=== PATIENT | male | born 1990 | race Caucasian/White ===

== ENCOUNTER 2019-05-20 21:40 | Emergency (ER) | payer OTHER ==
[~2019-05-20] VITALS: Ht 172.7 cm; Wt 99.8 kg
[2019-05-20 22:04] LABS: ABSOLUTE BASOPHILS 0.1 thou/uL (0.0-0.2); ABSOLUTE EOSINOPHILS 0.3 thou/uL (0.0-0.7); ABSOLUTE MONOCYTES 0.7 thou/uL (0.0-1.2); ABSOLUTE NEUTROPHILS 4.6 thou/uL (1.6-8.1); BASOPHILS 1.2 %; EOSINOPHILS 3.1 %; HEMATOCRIT 42.7 % (42.0-52.0); HEMOGLOBIN 15.1 gm/dL (14.0-18.0); LYMPHOCYTES 34.4 %; MCHC 35.3 g/dL (28.0-37.0); MCV 85.1 fL (80.0-100.0); MONOCYTES 7.8 %; MPV 8.9 fl. (7.2-11.1); NUCLEATED RBCS 0 /100WBC; PLATELET COUNT* 210 thou/uL (150-400); POLYS 53.5 %; RBC 5.02 mil/uL (4.50-6.00); RDW-CV 13.1 % (10.5-14.5); WBC 8.6 thou/uL (4.0-11.0)
[2019-05-20 22:14] LABS: ANION GAP 10 mmol/L (7-16); APTT 25.7 Seconds (25.0-31.3); BUN 18 mg/dL (7-18); CHLORIDE 105 mmol/L (98-107); CO2 29 mmol/L (21-32); CREATININE 1.1 mg/dL (0.6-1.3); GLUCOSE 94 mg/dL (70-99); POTASSIUM 3.6 mmol/L (3.5-5.1); PROTIME 10.6 Seconds (9.20-11.50); SODIUM 144 mmol/L (136-145)
[2019-05-20 22:27] LABS: ALBUMIN 4.1 g/dL (3.4-5.0); ALKALINE PHOSPHATASE 70 U/L (46-116); CK-MB MASS 0.6 ng/mL (<0.5-3.6); LIPASE 183 U/L (73-393); MAGNESIUM 1.8 mg/dL (1.8-2.4); NT-PRO BRAIN NAT PEPTIDE 22 pg/mL (<300); SGOT 27 U/L (15-37); SGPT 66 U/L (30-65); TOTAL BILIRUBIN 0.6 mg/dL (<0.1-1.0); TOTAL PROTEIN 7.6 g/dL (6.4-8.2); TROPONIN-I LEVEL <0.06 ng/mL (<0.06)
[2019-05-20 23:22] VITALS: BP 122/63
--- NOTE | 2019-05-22 10:49 | EKG ---
[place] [address] ELECTROCARDIOGRAM REPORT Name: FAYE HODGES [id number] Admission: 05/20/19 Attend Phys: Discharge: 05/20/19 Date of : [birth year] Report #: [id number] THIS REPORT FOR: //name// [facility] ED Test Date: 2019-05-20 Test Time: 21:47:52 Pat Name: FAYE HODGES Department: Room: Gender: M [employer]: [place] : 1990 Requested By: Del Warner Order Number: [id number] MD: Rommel Masters Measurements Intervals [place] Rate: 97 P: 46 CT: 141 QRS: 53 QRSD: 96 T: -5 QT: 333 QTc: 423 Interpretive Statements Sinus rhythm Borderline T abnormalities, inferior leads No previous ECG available for comparison Electronically Signed On 05-22-2019 10:49:42 CDT by Rommel Masters [email or web address] <ELECTRONICALLY SIGNED> By: Rommel Masters MD, [facility] 05/22/19 1049 2147 2147 Rommel Masters MD, FACC /EPI
== END 2019-05-20 23:23 | disposition home or self-care (01) ==
LOC: M.ERS 21:40
PROVIDERS: Family Medicine
DX: R07.89 Other chest pain (principal); R06.02 Shortness of breath